=== PATIENT | female | born 1980 | race African-American/Black ===

== ENCOUNTER 2024-11-05 13:37 | Emergency (ER) | payer OTHER ==
[~2024-11-05] VITALS: Ht 167.6 cm; Wt 83.4 kg
[2024-11-05 14:32] LABS: BASOPHILS 0.6 % (0.1-1.2); EOSINOPHILS 2.7 % (0.7-5.8); HEMATOCRIT 40.6 % (34.1-44.9); HEMOGLOBIN 13.2 g/dL (11.2-15.7); LYMPHOCYTES 41.4 % (19.3-51.7); MCH 29.3 PG (25.6-32.2); MCHC 32.5 g/dL (32.2-35.5); NEUTROPHILS 47.2 % (34.0-71.1); PLATELET COUNT 420 K/uL (182-369); RBC 4.51 M/uL (3.93-5.22)
[2024-11-05 14:55] LABS: ACETAMINOPHEN 0 ug/mL (10-30); ALBUMIN 4.1 g/dL (3.4-5.0); ALCOHOL, MEDICAL <3 ng/dL (<3); ALKALINE PHOSPHATASE 73 U/L (46-116); ALT (SGPT) 33 U/L (14-59); ANION GAP 10.9 (7-21); AST (SGOT) 37 U/L (15-37); BILIRUBIN, TOTAL 0.4 mg/dL (0.2-1.0); BUN/CREATININE RATIO 5.83 (6.0-28.6); CALCIUM 9.1 mg/dL (8.5-10.1); CARBON DIOXIDE 26 mmol/L (21-32); CHLORIDE 99 mmol/L (98-107); GLOMERULAR FILTRATION RATE,EST 57 mL/min (>60); POTASSIUM 2.9 mmol/L (3.5-5.1); PROTEIN, TOTAL 8.2 g/dL (6.4-8.2); TSH, 3RD GENERATION 0.357 uIU/mL (0.358-3.740); UREA NITROGEN 7 mg/dL (7-18)
[2024-11-05 15:49] LABS: BILIRUBIN, URINE NEGATIVE (negative); BLOOD/HGB, URINE NEGATIVE (Negative); KETONE, URINE NEGATIVE (Negative); LEUK ESTERASE, URINE NEGATIVE (negative); NITRITE, URINE NEGATIVE (negative)
[2024-11-05 16:03] LABS: AMPHETAMINES, URINE POSITIVE (NEGATIVE); BENZODIAZEPINE, URINE NEGATIVE (NEGATIVE); BUPRENORPHINE, URINE NEGATIVE (NEGATIVE); CANNABINOID, URINE POSITIVE (NEGATIVE); COCAINE, URINE NEGATIVE (NEGATIVE); ECSTASY, URINE NEGATIVE (NEGATIVE); FENTANYL, URINE NEGATIVE (NEGATIVE); METHADONE, URINE NEGATIVE (NEGATIVE); OPIATES, URINE NEGATIVE (NEGATIVE); OXYCODONE, URINE NEGATIVE (NEGATIVE); PHENCYCLIDINE, URINE NEGATIVE (NEGATIVE)
[2024-11-05] MEDS ORDERED: POTASSIUM CHLORIDE 20 MEQ/15 ML CUP PO ONE (16:15)
[2024-11-05 16:21] VITALS: BP 147/70
[2024-11-05] MEDS ORDERED: OLANZAPINE10 MG PO (23:42)
== END 2024-11-05 16:22 | disposition home or self-care (01) ==
LOC: ED 13:37
PROVIDERS: Emergency Medicine
DX: R45.6 Violent behavior (principal)
CPT/HCPCS: 36415; 80053; 80307; 81003; 84443; 84703; 85025; 99284; A9270; G0480

== ENCOUNTER 2024-11-05 20:54 | Emergency (ER) | payer OTHER ==
[~2024-11-05] VITALS: Ht 167.6 cm; Wt 82.8 kg
--- OUTSIDE RECORDS SUMMARY | 2024-11-05 21:01 | XMS ---
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: [facility] ([facility]) PHONE: [phone] CAMILA KATZ [facility] Current PHONE: Unknown Leelee has no Care Guidelines for this patient. EHardik VISIT COUNT (12 MO.) 2 [facility] TOTAL 2 NOTE: Visits indicate total known visits. ED/UCC VISIT TRACKING (12 MO.) 11/05/2024 20:55 [facility] [place] TYPE: Emergency COMPLAINT: - MENTAL HEALTH 11/05/2024 13:39 [facility] [place] TYPE: Emergency COMPLAINT: - SUICIDAL IDEATIONS INPATIENT VISIT TRACKING (12 MO.) No inpatient visits to display in this time frame [email or web address]
[2024-11-05 22:14] LABS: BILIRUBIN, URINE NEGATIVE (negative); BLOOD/HGB, URINE NEGATIVE (Negative); KETONE, URINE TRACE (Negative); LEUK ESTERASE, URINE NEGATIVE (negative); NITRITE, URINE NEGATIVE (negative)
[2024-11-05 22:29] LABS: AMPHETAMINES, URINE POSITIVE (NEGATIVE); BENZODIAZEPINE, URINE NEGATIVE (NEGATIVE); BUPRENORPHINE, URINE NEGATIVE (NEGATIVE); CANNABINOID, URINE POSITIVE (NEGATIVE); COCAINE, URINE NEGATIVE (NEGATIVE); ECSTASY, URINE NEGATIVE (NEGATIVE); FENTANYL, URINE NEGATIVE (NEGATIVE); METHADONE, URINE NEGATIVE (NEGATIVE); OPIATES, URINE NEGATIVE (NEGATIVE); OXYCODONE, URINE NEGATIVE (NEGATIVE); PHENCYCLIDINE, URINE NEGATIVE (NEGATIVE)
[2024-11-05] MEDS ORDERED: OLANZAPINE10 MG PO (23:42)
[2024-11-06 00:16] VITALS: BP 141/99
== END 2024-11-06 00:15 | disposition home or self-care (01) ==
LOC: ED 20:54
PROVIDERS: Family Medicine
DX: R45.851 Suicidal ideations (principal); Z63.0 Problems in relationship with spouse or partner; F15.10 Other stimulant abuse, uncomplicated; Z59.00 Homelessness unspecified
CPT/HCPCS: 80053; 80307; 81003; 84443; 84703; 85025; 99284; G0480